=== PATIENT | male | born 2000 ===

== ENCOUNTER 2018-01-07 12:50 | Emergency (ER) | payer OTHER ==
[2018-01-07 13:01] VITALS: BP 128/68; PULSE 72; RESP 16; TEMP 98.4; O2SAT 99
--- NOTE | 2018-01-07 13:26 | C.PDOC ---
History Of Present Illness 17 y/o male presents to ED complaining of right-sided dental pain since this morning. He notes that 2 weeks ago, he started feeling some pain and was taking leftover penicillin intermittently. He woke up this morning and noticed some swelling prompting ER visit. A few months ago, he notes that he was seen by a dentist for a problem in the same area, at which he was given the penicillin and told to follow up but he has not done so. He notes he has an appointment on Tuesday01/09/18. Otherwise he denies any difficulty breathing or swallowing, or fever. Patient has not taken any pain medications today. Time Seen by Provider: 01/07/18 13:06 Chief Complaint (Nursing): Dental Pain History Per: Patient History/Exam Limitations: no limitations Onset/Duration Of Symptoms: Days Current Symptoms Are (Timing): Still Present Past Medical History Reviewed: Historical Data, Nursing Documentation, Vital Signs Vital Signs: Last Vital Signs Temp 98.4 F 01/07/18 12:56 Pulse 72 01/07/18 12:56 Resp 16 01/07/18 12:56 BP 128/68 01/07/18 12:56 Pulse Ox 99 01/07/18 12:56 Family History: States: No Known Family Hx - Social History Hx Alcohol Use: No Hx Substance Use: Yes (marijuana) Review Of Systems Except As Marked, All Systems Reviewed And Found Negative. Constitutional: Negative for: Fever, Chills Cardiovascular: Negative for: Chest Pain Respiratory: Negative for: Shortness of Breath Gastrointestinal: Negative for: Nausea Musculoskeletal: Positive for: Other (Right sided dental pain) Physical Exam - Physical Exam Appears: Non-toxic, No Acute Distress Skin: Warm, Dry Head: Atraumatic, Normacephalic Eye(s): bilateral: Normal Inspection, EOMI Nose: Normal Oral Mucosa: Moist Tongue: Normal Appearing Lips: Normal Appearing Teeth: Caries (large jose l in L mandibular molar), No Dentures, Tender To Palpation Gingiva: No Erythema, No Bleeding, Other (gingival tenderness, swelling, and fluctuance to the L mandibular molar) Throat: Normal, No Erythema, No Exudate, No Drooling Neck: Normal ROM, Supple Lymphatic: Normal Exam Chest: Symmetrical Cardiovascular: Rhythm Regular Respiratory: Normal Breath Sounds, No Accessory Muscle Use Extremity: Normal ROM Neurological/Psych: Oriented x3, Normal Speech ED Course And Treatment O2 Sat by Pulse Oximetry: 99 (RA) Pulse Ox Interpretation: Normal Progress Note: Clindamycin and ibuprofen administered. Needle aspiration preformed to allow for some purulent drainage. Instructed patient to follow up with dentist as scheduled. Discussed return precautions. - Incision & Drainage Of Abscess Prep Used: Sterile Water, Betadine Procedure: Incised W/Scalpel Blade#: (need aspiration), Drained Pus, Irrigated Cavity W/Saline Disposition - Disposition Disposition: HOME/ ROUTINE Disposition Time: 13:23 Condition: STABLE Additional Instructions: Follow up with the dentist on Tuesday as scheduled. Return to ER if symptoms persist or worsen. Prescriptions: Clindamycin [Cleocin] 300 mg PO Q6 #28 cap Ibuprofen [Motrin] 600 mg PO Q6 PRN #20 tab PRN Reason: Pain, Mild (1-3) Instructions: Tooth Abscess (DC) Forms: [employer] (Hungarian) - Clinical Impression Clinical Impression: Dental abscess - PA / FUNERAL PRE NEED CONSULTANT / Resident Statement MD/DO has reviewed & agrees with the documentation as recorded. - Scribe Statement The provider has reviewed the documentation as recorded by the Scribantonina Varner All medical record entries made by the Bingibantonina were at my direction and personally dictated by me. I have reviewed the chart and agree that the record accurately reflects my personal performance of the history, physical exam, medical decision making, and the department course for this patient. I have also personally directed, reviewed, and agree with the discharge instructions and disposition.
== END 2018-01-07 13:46 | disposition home or self-care (01) ==
LOC: C.ER 12:50
DX: K04.7 Periapical abscess without sinus (principal)